=== PATIENT | male | born 1985 | race Caucasian/White ===

== ENCOUNTER 2017-10-26 00:38 | Emergency (ER) | payer OTHER ==
[~2017-10-26] VITALS: Ht 167.6 cm; Wt 81.6 kg
[2017-10-26] MEDS ORDERED: NIFEDIPINE ER30 M1 PO (03:54)
== END 2017-10-26 14:30 | disposition home or self-care (01) ==
LOC: ER 00:38
DX: I10 Essential (primary) hypertension (principal)

== ENCOUNTER 2018-02-08 10:22 | Outpatient (CLI) | payer OTHER | END 2018-02-08 19:43 | disposition home or self-care (01) | LOC: LAB 10:22 | DX: I10 Essential (primary) hypertension (principal); E11.9 Type 2 diabetes mellitus without complications; E03.8 Other specified hypothyroidism; E78.2 Mixed hyperlipidemia; M81.0 Age-related osteoporosis without current pathological fracture; N40.0 Benign prostatic hyperplasia without lower urinary tract symptoms ==

== ENCOUNTER 2018-02-08 12:53 | Outpatient (CLI) | payer OTHER | END 2018-02-08 12:59 | disposition home or self-care (01) | LOC: RAD 12:53 → MAMO-SONO 13:45 | DX: J32.8 Other chronic sinusitis (principal); J44.9 Chronic obstructive pulmonary disease, unspecified; M12.89 Other specific arthropathies, not elsewhere classified, multiple sites ==

== ENCOUNTER → 2018-02-08 | Outpatient (CLI) | payer OTHER ==
[~2018-02-08] MED LIST: NIFEDIPINE ER30 M1 PO
== END | disposition home or self-care (01) ==
LOC: NUCLEAR 11:47
DX: I10 Essential (primary) hypertension (principal); J44.9 Chronic obstructive pulmonary disease, unspecified

== ENCOUNTER 2020-02-11 13:02 | Emergency (ER) | payer OTHER ==
[~2020-02-11] VITALS: Ht 167.6 cm; Wt 86.2 kg
[2020-02-11] MEDS ORDERED: ATACAND4 MG (13:13)
[2020-02-11] MEDS ORDERED: HYDRALAZINE HCL25 MG (13:14)
[2020-02-11] MEDS ORDERED: HYDROCHLOROTH12.5 MG PO (15:29)
[2020-02-11] MEDS ORDERED: ATACAND16 MG PO (15:29)
[2020-02-11] MEDS ORDERED: ZITHROMAX500 MG PO (15:29)
== END 2020-02-11 15:46 | disposition home or self-care (01) ==
LOC: ER 13:02
DX: R00.2 Palpitations (principal); R07.89 Other chest pain; B96.0 Mycoplasma pneumoniae [M. pneumoniae] as the cause of diseases classified elsewhere; F41.8 Other specified anxiety disorders; Z03.818 Encounter for observation for suspected exposure to other biological agents ruled out

== ENCOUNTER 2021-03-09 12:05 | Outpatient (CLI) | payer OTHER ==
[~2021-03-09 12:05] MED LIST changes: +ATACAND16 MG PO; +ATACAND4 MG; +HYDRALAZINE HCL25 MG; +HYDROCHLOROTH12.5 MG PO; +ZITHROMAX500 MG PO
== END 2021-03-09 12:19 | disposition home or self-care (01) ==
LOC: TOM 12:05
PROVIDERS: ATTEND Otolaryngology
DX: J34.2 Deviated nasal septum (principal); J32.4 Chronic pansinusitis

== ENCOUNTER 2022-06-13 12:04 | Emergency (ER) | payer OTHER ==
[~2022-06-13] VITALS: Ht 152.4 cm; Wt 84.8 kg
[2022-06-13] MEDS ORDERED: COZAAR100 MG PO (12:27)
[2022-06-13] MEDS ORDERED: TOPROL XL25 M1 PO (12:28)
[2022-06-13] MEDS ORDERED: HYDROCHLOROTHIA25 MG PO (12:28)
[2022-06-13] MEDS ORDERED: HYDROXYZIN10 MG/5 ML PO (12:29)
== END 2022-06-13 16:17 | disposition home or self-care (01) ==
LOC: ER 12:04
DX: R51.9 Headache, unspecified (principal); F41.9 Anxiety disorder, unspecified; I10 Essential (primary) hypertension